=== PATIENT | female | born 1945 | race Caucasian/White ===

== ENCOUNTER 2020-08-14 21:30 | Emergency (ER) | payer MEDICARE, SELFPAY ==
[2020-08-14 21:31] VITALS: BP 143/86; PULSE 86; RESP 15; TEMP 36.8; O2SAT 96; BMI 38.3
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
--- NOTE | 2020-08-14 23:03 | ED.DEP ---
ED Disposition - Plan for ED Patient: Instructions: ED Soft Tissue Contusion Referrals: Jonatan Robles DO [Primary Care Provider] -
[2020-08-14 23:16] VITALS: RESP 18
[2020-08-14 23:18] VITALS: BP 125/68; PULSE 74; RESP 17; TEMP 36.6; O2SAT 98
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
== END 2020-08-14 23:25 | disposition home or self-care (01) ==
PROVIDERS: Emergency Provider Emergency Medicine; PCP Family Medicine
DX: S40.022A Contusion of left upper arm, initial encounter (principal); W50.0XXA Accidental hit or strike by another person, initial encounter; Y93.9 Activity, unspecified; Y92.9 Unspecified place or not applicable; I10 Essential (primary) hypertension; Z79.899 Other long term (current) drug therapy
CPT/HCPCS: 99284